=== PATIENT | male | born 1980 | race Caucasian/White ===

== ENCOUNTER 2018-11-15 22:35 | Emergency (ER) | payer MEDICARE, MEDICAID ==
[~2018-11-15] VITALS: Ht 177.8 cm; Wt 73.0 kg
[2018-11-15 23:10] VITALS: BP 130/81
[2018-11-15] MEDS ORDERED: BACITRACIN ZINC OINT UDPKT TOP ONE (23:45)
[2018-11-15] MEDS ORDERED: LIDOCAINE HCL/PF 1% 10 MG/ML 5ML VIAL IJ ONE (23:45)
== END 2018-11-16 02:22 | disposition left against medical advice (07) ==
LOC: ER 22:35
DX: R55 Syncope and collapse (principal); S01.21XA Laceration without foreign body of nose, initial encounter; F20.9 Schizophrenia, unspecified; W01.0XXA Fall on same level from slipping, tripping and stumbling without subsequent striking against object, initial encounter; Y93.89 Activity, other specified; Y92.89 Other specified places as the place of occurrence of the external cause
CPT/HCPCS: 70450; 70486; 99284; J3490